=== PATIENT | female | born 1985 | race Asian ===

== ENCOUNTER 2021-06-16 11:12 | Emergency (ER) | payer MEDICAID ==
[~2021-06-16] VITALS: Ht 160 cm; Wt 68.6 kg
[2021-06-16 12:15] LABS: BASOPHILS % (AUTO) 0.2 % (0.0-2.0); EOSINOPHILS % (AUTO) 0.8 % (1.0-6.0); HEMATOCRIT 43.5 % (36-46); HEMOGLOBIN 14.6 g/dL (12.0-16.0); LYMPHOCYTES # (AUTO) 2.2 K/uL (1.0-4.8); LYMPHOCYTES % (AUTO) 22.9 % (22.0-44.0); MEAN CORPUSCULAR HEMOGLOBIN 31.1 pg (26.0-34.0); MEAN CORPUSCULAR HGB CONC 33.6 G/dL (31.0-37.0); MEAN CORPUSCULAR VOLUME 93 fL (80-100); MONOCYTES # (AUTO) 0.4 K/uL (0.1-1.0); MONOCYTES % (AUTO) 4.2 % (2.0-9.0); NEUTROPHILS # (AUTO) 6.9 K/uL (1.8-7.7); NEUTROPHILS % (AUTO) 71.9 % (40.0-70.0); PLATELET COUNT (AUTO) 268 K/uL (150-450); RED CELL DISTRIBUTION WIDTH 12.5 % (11.5-14.5)
[2021-06-16 12:20] LABS: ANION GAP 10 mmol/L (8-16); CALCIUM, TOTAL 9.3 mg/dL (8.8-10.5); CARBON DIOXIDE 26 mmol/L (22-29); CHLORIDE 102 mmol/L (98-107); CREATININE 0.61 mg/dL (0.60-1.30); GLOMERULAR FILTR. RATE CALC > 60 mL/min (>60); GLUCOSE,RANDOM 102 mg/dL (70-110); POTASSIUM 4.3 mmol/L (3.5-5.1); SODIUM SERUM 138 mmol/L (136-145); UREA NITROGEN, BLOOD 8 mg/dL (7-18)
[2021-06-16 12:26] LABS: ALANINE AMINOTRANSFERASE 27 U/L (12-78); ALBUMIN 3.9 g/dL (3.4-5.0); ALKALINE PHOSPHATASE 85 U/L (46-116); ASPARTATE AMINOTRANSFERASE 22 U/L (15-37); BILIRUBIN,TOTAL 0.3 mg/dL (0.1-1.0); TOTAL PROTEIN, SERUM 7.8 g/dL (6.4-8.2)
[2021-06-16 13:42] VITALS: BP 157/98
[2021-06-16] MEDS ORDERED: LABETALOL HCL 100 MG TABLET PO ONE (13:45)
[2021-06-16 14:03] LABS: APPEARANCE,URINE CLEAR (CLEAR); BILIRUBIN,URINE NEGATIVE (NEGATIVE); GLUCOSE, URINE (UA) NEGATIVE (NEGATIVE); KETONES,URINE 40 mg/dL (NEGATIVE); LEUKOCYTE ESTERASE ,URINE NEGATIVE (NEGATIVE); NITRATE,URINE NEGATIVE (NEGATIVE); OCCULT BLOOD,URINE TRACE (NEGATIVE); PH,URINE 6.5 (5.0-8.0); PROTEIN,URINE NEGATIVE (NEGATIVE); UROBILINOGEN,URINE 0.2 mg/dL (<=1.0)
[2021-06-16 14:13] LABS: BACTERIA,URINE None Seen /HPF (None Seen); RBC,URINE 0-2 /HPF (0-2); SQUAMOUS EPITHELIAL CELL,UR Few /LPF (None Seen); WBC,URINE 0-2 /HPF (0-5)
[2021-06-16 14:54] LABS: COVID AG,FIA SOURCE NASOPHARYNGEAL
== END 2021-06-16 14:14 | disposition home or self-care (01) ==
LOC: EMS 11:12
DX: O09.521 Supervision of elderly multigravida, first trimester (principal); Z20.822 Contact with and (suspected) exposure to COVID-19; Z3A.01 Less than 8 weeks gestation of pregnancy
CPT/HCPCS: 36415; 80053; 81001; 84484; 85025; 87426; 93005; 99284; C9803; U0003

== ENCOUNTER 2023-11-09 14:22 | Emergency (ER) | payer MEDICAID, OTHER ==
[~2023-11-09] VITALS: Ht 160 cm; Wt 65.5 kg
[2023-11-09 14:31] VITALS: TEMP 97.9
[2023-11-09 15:22] LABS: BASOPHILS % (AUTO) 0.3 % (0.0-2.0); EOSINOPHILS % (AUTO) 1.1 % (1.0-6.0); HEMATOCRIT 42.1 % (36-46); HEMOGLOBIN 14.9 g/dL (12.0-16.0); LYMPHOCYTES # (AUTO) 3.2 K/uL (1.0-4.8); LYMPHOCYTES % (AUTO) 34.7 % (22.0-44.0); MEAN CORPUSCULAR HEMOGLOBIN 33.1 pg (26.0-34.0); MEAN CORPUSCULAR HGB CONC 35.4 G/dL (31.0-37.0); MEAN CORPUSCULAR VOLUME 94 fL (80-100); MONOCYTES # (AUTO) 0.4 K/uL (0.1-1.0); NEUTROPHILS # (AUTO) 5.6 K/uL (1.8-7.7); NEUTROPHILS % (AUTO) 59.9 % (40.0-70.0); PLATELET COUNT (AUTO) 240 K/uL (150-450); RED CELL DISTRIBUTION WIDTH 11.9 % (11.5-14.5); WHITE BLOOD COUNT (AUTO) 9.3 K/uL (4.5-11.0)
[2023-11-09 15:33] LABS: ANION GAP 7 mmol/L (8-16); CALCIUM, TOTAL 8.9 mg/dL (8.8-10.5); CARBON DIOXIDE 27 mmol/L (22-29); CHLORIDE 103 mmol/L (98-107); CREATININE 0.87 mg/dL (0.60-1.30); GLOMERULAR FILTR. RATE CALC > 60 mL/min (>60); GLUCOSE,RANDOM 95 mg/dL (70-110); SODIUM SERUM 137 mmol/L (136-145); UREA NITROGEN, BLOOD 13 mg/dL (7-18)
[2023-11-09 15:39] LABS: ALANINE AMINOTRANSFERASE 15 U/L (12-78); ALBUMIN 3.7 g/dL (3.4-5.0); ALKALINE PHOSPHATASE 73 U/L (46-116); ASPARTATE AMINOTRANSFERASE 19 U/L (15-37); BILIRUBIN,TOTAL 0.3 mg/dL (0.1-1.0); TOTAL PROTEIN, SERUM 7.7 g/dL (6.4-8.2); TROPONIN I-HIGH SENSITIVITY 5 ng/L (<51)
[2023-11-09] MEDS ORDERED: ACET-66 PO (16:08)
[2023-11-09] MEDS ORDERED: MECL-134 PO (16:08)
[2023-11-09] MEDS ORDERED: IBUP-1554 PO (16:08)
[2023-11-09 16:28] VITALS: BP 158/94; PULSE 86; RESP 18
== END 2023-11-09 16:52 | disposition home or self-care (01) ==
LOC: EMS 14:39
DX: R42 Dizziness and giddiness (principal); M54.9 Dorsalgia, unspecified; I10 Essential (primary) hypertension
CPT/HCPCS: 71045; 80053; 84484; 85025; 93005; 99285